=== PATIENT | male | born 2000 ===

== ENCOUNTER 2022-07-18 20:40 | Emergency (ER) | payer OTHER ==
[2022-07-18] MEDS ORDERED: fentaNYL 100 MCG/2 ML SDV IVPUSH ONE (20:48)
[2022-07-18 21:15] LABS: ESTIMATED GFR 79 mL/min (>60)
== END 2022-07-18 22:46 | disposition home or self-care (01) ==
LOC: JD.ED 20:40
DX: S06.0X0A Concussion without loss of consciousness, initial encounter (principal); W17.89XA Other fall from one level to another, initial encounter
CPT/HCPCS: 36415; 70450; 71045; 72125; 80053; 85025; 85610; 96374; 99284; J3010; 99283